=== PATIENT | male | born 1985 | race Two or more races ===

== ENCOUNTER 2017-10-18 01:48 | Emergency (ER) | payer SELFPAY ==
[~2017-10-18] VITALS: Ht 182.9 cm; Wt 85.0 kg
[2017-10-18 02:06] VITALS: BP 121/74
== END 2017-10-18 05:12 | disposition home or self-care (01) ==
LOC: ED 05:06
DX: F10.120 Alcohol abuse with intoxication, uncomplicated (principal)
CPT/HCPCS: 36415; 80307; 99283